=== PATIENT | female | born 1995 | race Caucasian/White ===

== ENCOUNTER → 2017-02-13 | Outpatient (CLI) | payer BC ==
[~2017-02-13] MED LIST: ALBUAER19 INH; BCPILLS PO; CETI10TA84 PO; MONT1TAB3 PO
== END | disposition home or self-care (01) ==
LOC: C.PAPS 08:48
PROVIDERS: ATTEND Obstetrics & Gynecology
DX: Z01.419 Encounter for gynecological examination (general) (routine) without abnormal findings (principal)

== ENCOUNTER → 2017-06-23 | Outpatient (CLI) | payer OTHER ==
--- NOTE | 2017-06-23 08:17 | DIAGNOSTIC IMAGING REPORT ---
ABDOMINAL ULTRASOUND, RIGHT UPPER QUADRANT HISTORY: Generalized abdominal pain.. COMPARISON: Abdomen and pelvis CT 05/30/2015. FINDINGS: Pancreas: The pancreatic tail is obscured by overlying bowel gas. The remaining portions of the pancreas are within normal limits. Liver: The liver is echogenic consistent with fatty change. A 2.6 x 2.0 x 2.1 cm hypoechoic area within the left hepatic lobe. Gallbladder: No gallbladder wall thickening. No gallstones. CBD: 4 mm. Right kidney: No hydronephrosis. IMPRESSION: 1. The liver is slightly echogenic consistent with mild fatty change. 2. There is a 2.6 x 2.1 x 2.0 cm hypoechoic area which may represent focal fatty sparing. However, dedicated liver MRI is recommended for confirmation. Electronically signed by: Raghu Rueda M.D. 06/23/2017 8:15 AM Dictated Date/Time: 06/23/2017 8:13 AM
== END | disposition home or self-care (01) ==
LOC: C.ULTR 06:32
PROVIDERS: ATTEND Nurse Practitioner Family
DX: R10.11 Right upper quadrant pain (principal); R93.2 Abnormal findings on diagnostic imaging of liver and biliary tract

== ENCOUNTER → 2017-06-28 | Outpatient (CLI) | payer OTHER ==
[~2017-06-28] MED LIST changes: +GADOXETATE DISODIUM (NON-WT BASED PROCEDURE) IV PRN
--- NOTE | 2017-06-28 08:02 | DIAGNOSTIC IMAGING REPORT ---
LIVER COMBO CLINICAL HISTORY: 22 years-old Female presenting with ABD PAIN,RT UPPER QUAD, pain for 3 weeks, question of focal fatty sparing on recent ultrasound. TECHNIQUE: Multisequence, multiplanar MR imaging of the abdomen was performed before and after the administration of intravenous contrast. IV contrast: 10 mL of Eovist. COMPARISON: CT from 05/30/2015 and ultrasound from 06/23/2017. FINDINGS: Localizer images: Unremarkable. Lung bases: Lungs and pleural spaces clear. Normal heart size. No pericardial or pleural effusion. Liver: Normal morphology. Hepatic fat fraction measures 3.6%, which is normal. Two mildly T2 hyperintense lesions are noted, one in the right hepatic lobe and one in the left hepatic lobe. These are minimally apparent on precontrast T1-weighted imaging and are mildly diffusion hyperintense. Arterial postcontrast imaging demonstrates early nearly homogeneous hyperenhancement and lack of retention of contrast on hepatocellular phase. Patent hepatic vasculature. Biliary: No intrahepatic or extrahepatic biliary ductal dilatation. Normal gallbladder. Pancreas: Normal. Spleen: Normal. Adrenal glands: Normal. Kidneys and ureters: Normal. No hydronephrosis. Bowel: Normal appendix. No bowel obstruction. Peritoneal cavity: No free fluid or intraperitoneal gas. Lymph nodes: No enlarged lymph nodes in the abdomen. Vasculature: Aorta and IVC patent and normal in caliber. Abdominal wall: Normal. Musculoskeletal: Normal. IMPRESSION: 1. No evidence of hepatic steatosis. 2. In the absence of a history of hepatocellular risk factors or malignancy, the clinically queried abnormalities on ultrasound correspond to two hepatic hemangiomas, which are benign. Electronically signed by: Hair Valle M.D. 06/28/2017 8:01 AM Dictated Date/Time: 06/28/2017 7:50 AM
== END | disposition home or self-care (01) ==
LOC: C.MRI 06:08
PROVIDERS: ATTEND Nurse Practitioner Family
DX: R10.11 Right upper quadrant pain (principal); R93.2 Abnormal findings on diagnostic imaging of liver and biliary tract

== ENCOUNTER → 2017-07-12 | Outpatient (CLI) | payer OTHER ==
[~2017-07-12] MED LIST changes: -GADOXETATE DISODIUM (NON-WT BASED PROCEDURE) IV PRN; +OPTIRAY 320 IV PRN
--- NOTE | 2017-07-12 08:00 | DIAGNOSTIC IMAGING REPORT ---
ABD/PELVIS IV AND ORAL CONT CT DOSE: 1062.14 mGycm HISTORY: Pain. Nausea. RUQ PAIN, DIARRHEA, HEMANGIOMA OF LIVER TECHNIQUE: Multiaxial CT images of the abdomen and pelvis were performed following the use of intravenous and oral contrast. A dose lowering technique was utilized adhering to the principles of ALARA. COMPARISON STUDY: 05/30/2015 FINDINGS: Lung bases are clear. Liver enhances formerly. 2 small hepatic hemangiomas procedure described are stable. No new or interval findings. Kidneys enhance uniformly. Normal bowel pattern. No evidence for obstructive change. Normal appendix. Several small ovarian follicular cysts bilaterally. No free fluid within the pelvic cul-de-sac. Bladder somewhat contracted. Several very small mesenteric nodes. IMPRESSION: 1. Minimal/mild mesenteric adenitis. 2. Otherwise negative study. 3. 2 small benign hemangiomas unchanged. The above report was generated using voice recognition software. It may contain grammatical, syntax or spelling errors. Electronically signed by: Jorge Selby M.D. 07/12/2017 7:59 AM Dictated Date/Time: 07/12/2017 7:49 AM
== END | disposition home or self-care (01) ==
LOC: C.CTS 07:15
PROVIDERS: ATTEND Registered Nurse
DX: D18.03 Hemangioma of intra-abdominal structures (principal); R19.7 Diarrhea, unspecified; R10.11 Right upper quadrant pain

== ENCOUNTER → 2017-08-16 | Day surgery (SDC) | payer OTHER ==
[2017-08-02 16:49] VITALS: Ht 170.2 cm; Wt 107.3 kg
[~2017-08-16] VITALS: Ht 170.2 cm; Wt 107.3 kg
[~2017-08-16] MED LIST changes: -ALBUAER19 INH; +ALLERGY SHOTS SQ; -BCPILLS PO; -CETI10TA84 PO; +FENTANYL CITRATE INJ 50 MCG/1 ML 2 ML VIAL ONE; +FLUT0.15 PO; +LIDOCAINE HCL 2% 2 ML VIAL (20MG/ML) ONE; -MONT1TAB3 PO; -OPTIRAY 320 IV PRN; +PRLSR20 PO; +PROPOFOL IV EMULSION 10 MG/ML 20 ML VIAL IV ONE; +SODIUM CHLORIDE 0.9% 500ML 500 ML IV ONE; +VNTHFA/IN INH
--- NOTE | 2017-08-16 08:38 | Endo History and Physical ---
History & Physical Date of Service: Aug 16, 2017. Chief Complaint: RUQ pain, diarrhea Referring Physician: Lalo Ferrera History of Present Illness 22 yo CF who presents for EGD secondary to RUQ abdominal pain and diarrhea. Past Surgical History Hx Cardiac Surgery: No Hx Internal Defibrillator: No Hx Pacemaker: No Hx Abdominal Surgery: No Hx of Implantable Prosthesis: No Hx Post-Op Nausea and Vomiting: No Hx Cancer Surgery: No Hx Thoracic Surgery: No Hx Orthopedic: No Hx Urinary Tract Surgery: No Family History Polyp Social History Smoking Status: Former Smoker Hx Substance Use: No Hx Alcohol Use: No Allergies Coded Allergies: No Known Allergies (Unverified , 08/02/17) Current Medications Reported Home Medications Medications Dose Route/Sig Max Daily Dose Days Date Category [Allergy Shots] 1 Dose SQ UD 08/02/17 Reported Prilosec (Omeprazole) 20 Mg Capcr 20 Mg PO QAM 08/02/17 Reported Flonase Allergy Relief (Fluticasone Propionate (Nasal)) 50 Mcg/Act Spr 1 [place] PO BID 08/02/17 Reported Ventolin Hfa (Albuterol) 200 Puffs/13632 Mcg Aers 2 Puffs INH Q6H PRN 08/02/17 Reported Vital Signs Weight (Kilograms): 107.27 Height (Feet): 5 Height (Inches): 7 Physical Exam General Appearance: WD/WN, no apparent distress Respiratory/Chest: Auscultation: breath sounds normal Cardiovascular: Heart Auscultation: RRR Abdomen: Bowel Sounds: normal Inspection & Palpation: soft, non-distended, no tenderness, guarding & rebound Assessment and Plan Assessment: 22 yo CF who presents for EGD secondary to RUQ abdominal pain and diarrhea. Plan: Proceed with EGD.
--- NOTE | 2017-08-16 10:03 | Discharge Instructions ---
Endoscopy Patient Instructions Date / Procedure(s) Performed Aug 16, 2017. EGD Allergy Information Coded Allergies: No Known Allergies (Unverified , 08/02/17) Discharge Date / Findings Aug 16, 2017. Duodenal biopsies Gastric antrum biopsies Medication Instructions OK to resume all medications today as prescribed Reported Home Medications Medications Dose Route/Sig Max Daily Dose Days Date Category [Allergy Shots] 1 Dose SQ UD 08/02/17 Reported Prilosec (Omeprazole) 20 Mg Capcr 20 Mg PO QAM 08/02/17 Reported Flonase Allergy Relief (Fluticasone Propionate (Nasal)) 50 Mcg/Act Spr 1 [place] PO BID 08/02/17 Reported Ventolin Hfa (Albuterol) 200 Puffs/44319 Mcg Aers 2 Puffs INH Q6H PRN 08/02/17 Reported Provider Instructions Activity Restrictions - No exercising or heavy lifting for 24 hours. - Do not drink alcohol the day of the procedure. - Do not drive a car or operate machinery until the day after the procedure. - Do not make any important decisions or sign important papers in 24 hours after the procedure. Following Day: - Return to full activity which may include returning to work/school. Diet Start your diet with liquids and light foods (jello, soup, juice, toast). Then eat your usual diet if not nauseated. Treatment For Common After Affects For mild abdominal pain, bloating, or excessive gas: - Rest - Eat lightly - Lie on right side Follow-Up Information Follow-up with Lalo Ferrera as scheduled Anesthesia Information What You Should Know You have had a procedure that required some medicine to reduce anxiety and discomfort. This treatment is called moderate sedation. After receiving the treatment, you may be sleepy, but you will be able to breathe on your own. The effects of the treatment may last for several hours. Follow these instructions along with Activity/Diet recommendations noted above: * Do NOT do anything where dizziness or clumsiness would be dangerous. * Rest quietly at home today, then you can be up and about tomorrow. * Have a responsible person stay with you the rest of today. * You may have had an I.V. today. If so, you may take the dressing off later today. Recommendations Call your doctor if: * Trouble breathing * Continuous vomiting for more than 24 hours * Temperature above 101 degrees * Severe abdominal pain or bloating * Pain not relieved by pain medicine ordered * There is increased drainage or redness from any incision * A large amount of rectal bleeding greater than 2-3 tablespoons. (If you had a polyp/s removed or have hemorrhoids, a small amount of blood - from the rectum is to be expected.) * You have any unanswered questions or concerns. IN THE EVENT OF A SERIOUS EMERGENCY, GO TO THE NEAREST EMERGENCY ROOM Your discharge instructions were prepared by provider Randolph Torres. Patient Instructions Signature Page Lu Mccabe Patient (or Guardian) Signature/Date: I have read and understand the instructions given to me by my caregivers. Caregiver/RN/Doctor Signature/Date: The above-named patient and/or guardian has received patient instructions on this date. + Original Patient Signature Page (only) stays with chart. Please make copy for patient.
--- NOTE | 2017-08-16 10:09 | GI REPORT ---
Procedure Date: 08/16/2017 8:53 AM THIS REPORT HAS BEEN AMENDED Addendum Number: 1 Addendum Date: 08/16/2017 10:11:24 AM Indication for this procedure should read RUQ abdominal pain and diarrhea Procedure: Upper GI endoscopy Indications: Abdominal pain in the left upper quadrant, Nausea Medicines: Monitored Anesthesia Care Complications: No immediate complications. Estimated Blood Loss: Estimated blood loss: none. Procedure: Pre-Anesthesia Assessment: - Prior to the procedure, a History and Physical was performed, and patient medications and allergies were reviewed. The patient's tolerance of previous anesthesia was also reviewed. The risks and benefits of the procedure and the sedation options and risks were discussed with the patient. All questions were answered, and informed consent was obtained. Prior Anticoagulants: The patient has taken no previous anticoagulant or antiplatelet agents. ASA Grade Assessment: II - A patient with mild systemic disease. After reviewing the risks and benefits, the patient was deemed in satisfactory condition to undergo the procedure. After obtaining informed consent, the endoscope was passed under direct vision. Throughout the procedure, the patient's blood pressure, pulse, and oxygen saturations were monitored continuously. The scope was introduced through the mouth, and advanced to the second part of duodenum. The upper GI endoscopy was accomplished without difficulty. The patient tolerated the procedure well. Findings: The examined esophagus was normal. The entire examined stomach was normal. Biopsies were taken with a cold forceps for histology. The examined duodenum was normal. Biopsies for histology were taken with a cold forceps for evaluation of celiac disease. Impression: - Normal esophagus. - Normal stomach. Biopsied. - Normal examined duodenum. Biopsied. Recommendation: - Resume previous diet. - Continue present medications. - Await pathology results. - Return to primary care physician as previously scheduled. Randolph Yady Torres DO 08/16/2017 10:08:27 AM This report has been signed electronically. Note Initiated On: 08/16/2017 8:53 AM I attest to the content of the Intraoperative Record and orders documented therein, exceptions below Randolph Conteh DO Brian 08/16/2017 10:11:48 AM This report has been signed electronically.
[2017-08-16 10:38] VITALS: BP 116/67; PULSE 63; O2SAT 97
--- NOTE | 2017-08-16 10:42 | Anesthesiology Progress Note ---
Anesthesia Post Op Note Date & Time Aug 16, 2017 at 10:41 Vital Signs Pain Intensity: 5 Vital Signs Past 12 Hours Date Time Temp Pulse Resp B/P (MAP) Pulse Ox O2 Delivery O2 Flow Rate FiO2 08/16/17 10:19 72 16 121/81 (94) 99 Room Air 08/16/17 10:04 89 16 116/74 (88) 97 Room Air 08/16/17 08:38 36.7 84 20 144/85 (104) 99 Room Air Notes Mental Status: alert / awake / arousable, participated in evaluation Pt Amnestic to Procedure: Yes Nausea / Vomiting: adequately controlled Pain: adequately controlled Airway Patency, RR, SpO2: stable & adequate BP & HR: stable & adequate Hydration State: stable & adequate Anesthetic Complications: no major complications apparent
== END | disposition home or self-care (01) ==
LOC: C.GI 08:15
PROVIDERS: ATTEND Internal Medicine
DX: R10.11 Right upper quadrant pain (principal); R19.7 Diarrhea, unspecified; J45.909 Unspecified asthma, uncomplicated; E66.9 Obesity, unspecified; Z87.891 Personal history of nicotine dependence; Z68.37 Body mass index [BMI] 37.0-37.9, adult; Z90.89 Acquired absence of other organs; Z83.71 Family history of colonic polyps

== ENCOUNTER → 2017-09-19 | Outpatient (CLI) | payer OTHER ==
[~2017-09-19] MED LIST changes: -FENTANYL CITRATE INJ 50 MCG/1 ML 2 ML VIAL ONE; -LIDOCAINE HCL 2% 2 ML VIAL (20MG/ML) ONE; -PROPOFOL IV EMULSION 10 MG/ML 20 ML VIAL IV ONE; +SINCALIDE INJ 2.2 MCG in SODIUM CHLORIDE 0.9% 100ML 100 ML IV ONE; -SODIUM CHLORIDE 0.9% 500ML 500 ML IV ONE
--- NOTE | 2017-09-19 10:23 | DIAGNOSTIC IMAGING REPORT ---
NUCLEAR MEDICINE HEPATOBILIARY SCAN WITH EJECTION FRACTION HISTORY: R10.11 Abdominal pain, RUQ (right upper quadrant)R19.7 Acute magda COMPARISON: Abdominal ultrasound 06/23/2017. TECHNIQUE: Immediately following the intravenous administration of 5.5 mCi Tc-99m Choletec, dynamic anterior abdominal imaging pre/post 2 mcg of Kinevac was performed. FINDINGS: Uniform hepatic tracer accumulation is shown. Prompt intrahepatic biliary excretion is seen. The gallbladder, common bile duct, and small bowel are all visualized by 57 minutes. This appearance represents the normal sequence of biliary excretion. The gall bladder ejection fraction following administration of Kinevac was 95% (normal >35%). IMPRESSION: 1. No evidence for cystic duct obstruction. 2. Gallbladder ejection fraction calculated to be 95 %. Electronically signed by: Raghu Rueda M.D. 09/19/2017 10:22 AM Dictated Date/Time: 09/19/2017 10:20 AM
== END | disposition home or self-care (01) ==
LOC: C.NUCL 07:51
PROVIDERS: ATTEND Registered Nurse
DX: R11.0 Nausea (principal); R19.7 Diarrhea, unspecified; R10.11 Right upper quadrant pain

== ENCOUNTER 2020-10-31 06:26 | Inpatient (IN) ==
--- NOTE | 2020-10-31 06:45 | Labor Progress Brief Note ---
Date of Service October 31, 2020 Subjective Patient returns to L&D reporting contractions that are Q2min at times. Still no LOF, no VB. Good FM. Has now lost some more mucus plug. Assessment & Plan (1) Normal labor and delivery: now making cervical change, admit, epidural requested. Physical Exam Physical Exam: /-2 T Cat 1 [place] Q2-4 irreg mucus on labia, no ROM evident Results & Data ([facility]) Vital Signs (Past 12 Hours) Vital Signs Pulse BP 10/31/20 06:34 86 144/83 H Coding Level of Care Code None Diagnoses Normal labor and delivery O80
[2020-10-31] MEDS ORDERED: ePHEDrine sulfate 50 MG/ML AMP ONE (07:45)
[2020-10-31] MEDS ORDERED: SODIUM CHLORIDE 0.9% INJ 10 ML VIAL ONE (07:45)
[2020-10-31] MEDS ORDERED: BUPIVACAINE 0.25% 30 ML VIAL ONE (07:45)
[2020-10-31] MEDS: LACTATED RINGER'S 1,000 ML IV PRN ×3 (07:45→11:44)
[2020-10-31] MEDS ORDERED: fentaNYL citrate 100 MCG/2 ML VIAL ONE (07:46)
[2020-10-31] MEDS ORDERED: fentaNYL 2MCG/ML ROPIVACAINE 1.25MG/ML 100 ML BAG EPI ONE (07:46)
[2020-10-31 07:50] LABS: Hematocrit (blood only) 42.1 % (37-47); Hemoglobin 14.6 g/dL (12.0-16.0); Mean Corpuscular Hemoglobin 31.6 pg (25-34); Mean Corpuscular Hgb Conc 34.7 g/dL (32-36); Mean Corpuscular Volume 91.1 fL (80-100); Mean Platelet Volume 10.1 fL (7.4-10.4); Platelet Count 278 K/uL (130-400); RDW Coefficient of Variation 13.6 % (11.5-14.5); RDW Standard Deviation 44.4 fL (36.4-46.3); Red Blood Count 4.62 M/uL (4.2-5.4)
--- NOTE | 2020-10-31 08:18 | Anesthesiology Consultation ---
Date of Service October 31, 2020 Assessment & Plan (1) Encounter for pre-operative examination: Chart Review Chart Review: Patient NOT seen in Pre Admission Testing and Acceptable Risk for Labor Epidural Consults Requested none ASA ASA2 Proposed Anesthesia Anesthesia Type: Labor Epidural Risk / Benefits Reviewed With: PT / POA / Parent / Guardian, Accepts Plan and Informed Consent Obtained History Height/Weight Height: 5 ft 7 in Weight: 133.356 kg Allergies Allergy/AdvReac Type Severity Reaction Status Date / Time No Known Drug Allergies Allergy Verified 10/27/20 16:24 Medications Home Medications Medication Instructions Recorded Confirmed Last Taken albuterol sulfate 90 mcg/actuation 2 puffs INHALATION Q6H PRN #18 gm 02/28/19 10/31/20 Unknown aerosol inhaler levothyroxine 50 mcg tablet 50 mcg PO DAILY #90 tab 07/09/20 10/31/20 10/30/20 08:00 prenat.vits,latasha,stu-boqn-xazug 1 tab PO DAILY 09/09/20 10/31/20 10/30/20 08:00 [ Vitamin] Past Medical History Medical History Anxiety Asthma Dysmenorrhea Dyspareunia Eczema History of hemangioma HX OF 2. WAS SEEN BY LIVER SPECIAL[place] [facility] [place]THER CONCERN Perianal abscess Past Family History Family History Father Allergic rhinitis Family history of bleeding or clotting disorder Hypertension Dyslipidemia Grandmother Asthma Osteoporosis Ovarian cancer great grandmother Grandfather Diabetes Cancer Heart disease Grandmother (Maternal) Asthma Mother Family history of bleeding or clotting disorder Thyroid disease Denies family history of Prostate cancer Crohn's disease Myocardial infarction Breast cancer Colorectal cancer Past Surgical History Surgical History History of cholecystectomy History of esophagogastroduodenoscopy (EGD) 08/16/17. propofol/fentanyl. no issues. History of hysterosalpingogram 10/16/18, Dr. Sumner History of laparoscopic cholecystectomy (~03/2018) History of tonsillectomy History of tooth extraction Social History Smoking Status: Never smoker Hx Alcohol Use: No Hx Substance Use: No substance use type: does not use Physical Exam Vital Signs Last Vital Signs Temp 36.7 C 10/31/20 06:59 Pulse 73 10/31/20 08:10 Resp 18 10/31/20 06:59 BP 138/82 10/31/20 06:59 Pulse Ox 97 10/31/20 08:10 Testing Laboratory Results 10/31/20 07:41
[2020-10-31] MEDS ORDERED: ONDANSETRON INJ 2 MG/ML 2 ML VIAL IV PRN (09:21)
[2020-10-31] MEDS ORDERED: diphenhydrAMINE 50 MG/ML VIAL IV PRN (09:21)
[2020-10-31] MEDS ORDERED: NALOXONE HCL 1 MG in SODIUM CHLORIDE 0.9% 1000ML 1,000 ML IV PRN (09:21)
[2020-10-31] MEDS ORDERED: ePHEDrine sulfate 50 MG/ML AMP IV PRN (09:21)
[2020-10-31] MEDS ORDERED: NALOXONE HCL 0.4 MG/1 ML VIAL/CARP IV PRN (09:21)
[2020-10-31] MEDS ORDERED: fentaNYL 2MCG/ML ROPIVACAINE 1.25MG/ML 100 ML BAG EPI PRN (09:21)
[2020-10-31] MEDS ORDERED: CALCIUM CARBONATE 500 MG CHEWABLE TAB PO PRN (10:50)
[2020-10-31] MEDS ORDERED: LIDOCAINE 1% LOCAL 20 ML VIAL ONE (14:01)
[2020-10-31] MEDS: OXYTOCIN 30 UNITS/500 ML BAG IV PRN ×2 (14:14→14:53)
[2020-10-31] MEDS ORDERED: IBUPROFEN 600 MG TAB PO ONE (14:57)
[2020-10-31] MEDS ORDERED: OXYTOCIN 30 UNITS/500 ML BAG IV PRN (15:09)
[2020-10-31] MEDS ORDERED: SUPERCREAM 0.870% 15 GM JAR EXT PRN (15:09)
[2020-10-31] MEDS ORDERED: BENZOCAINE 20% AER SPR 82.5 GM CAN EXT PRN (15:09)
[2020-10-31] MEDS ORDERED: DIPHTHERIA/TETANUS/PERTUSSIS 0.5 ML SYR/VIAL IM ONE (15:09)
[2020-10-31] MEDS ORDERED: ACETAMINOPHEN 325 MG TAB PO PRN (15:09)
[2020-10-31] MEDS ORDERED: HYDROCORTISONE ACETATE 25 MG SUPP PR PRN (15:09)
--- NOTE | 2020-10-31 15:47 | Anesthesia Procedure Note ---
Date of Service October 31, 2020 Anesthesia Post Epidural Note Vital Signs Vital Signs: Temp Pulse Resp BP Pulse Ox 36.8 C 97 H 18 139/76 99 10/31/20 13:36 10/31/20 15:35 10/31/20 15:20 10/31/20 15:35 10/31/20 14:11 Pain Intensity Bilateral Abdomen: Pain Intensity: 0 Notes Mental Status: alert / awake / arousable and participated in evaluation Nausea / Vomiting: adequately controlled Pain: adequately controlled Airway Patency, RR, SpO2: stable & adequate BP & HR: stable & adequate Hydration State: stable & adequate Neuraxial Anesthesia: was administered and sensory block is resolving Anesthetic Complications: no major complications apparent and Pt Satisfied with anesthetic care Epidural: Removed without complications and With tip intact
--- NOTE | 2020-10-31 18:42 | Delivery Summary ---
DATE OF SERVICE: 10/31/2020 PROCEDURE: Normal spontaneous vaginal delivery, second-degree perineal laceration repair. SURGEON: Krish Sumner MD. PREOPERATIVE DIAGNOSES: 1. Single intrauterine at term. 2. Spontaneous labor. 3. Hypothyroidism. POSTOPERATIVE DIAGNOSES: 1. Single intrauterine at term. 2. Spontaneous labor. 3. Hypothyroidism. 4. Status post procedure. ESTIMATED BLOOD LOSS: 300 mL. DRAINS: Straight cath. FLUIDS: Continuous lactated Ringer. URINE OUTPUT: Per straight cath. COMPLICATIONS: None. FINDINGS: Viable male infant, weight pending and Apgars of 8 and 9 at one and five minutes charles choy. DESCRIPTION OF PROCEDURE: The patient progressed to 10 cm dilated, 100% effaced, positive 2 station , pushed over perineum over approximately 3-4 contractions to achieve delivery. The head of the neon ate delivered in KEVON position, restituted into right transverse. No nuchal cord was noted, body and shoulders quickly followed. was noted to be vigorous upon delivery and a [address] clamping was initiated. Cord was then double clamped and cut. remained on the maternal a bdomen. Cord blood was obtained. Attention was then turned to delivery of placenta, which was deliv ered intact, 3-vessel cord, gentle cord traction. On inspection of the perineum, vagina, cervix, the re was noted to be a second-degree perineal laceration, which was repaired with a 3-0 Vicryl in the t raditional crown stitch. Needle, sponge, and instrument counts were correct at the completion of the case. Both mother and were stable in the immediate post-delivery period. Job ID: [id number]
[2020-10-31] MEDS ORDERED: DOCUSATE SODIUM 100 MG CAP PO ONE (19:09)
[2020-10-31] MEDS: IBUPROFEN 600 MG TAB PO PRN ×2 (19:19→23:24)
[2020-10-31] MEDS: DOCUSATE SODIUM 100 MG CAP PO SCH (19:20)
[2020-11-01] MEDS: IBUPROFEN 600 MG TAB PO PRN ×3 (03:40→12:39)
[2020-11-01] MEDS ORDERED: LEVOTHYROXINE SODIUM 50 MCG TABLET PO SCH (06:30)
[2020-11-01] MEDS ORDERED: PRENATAL VITAMIN 1 TAB PO SCH (08:00)
[2020-11-01] MEDS: DOCUSATE SODIUM 100 MG CAP PO SCH (08:20)
--- NOTE | 2020-11-01 09:02 | Obstetrical Progress Note ---
Date of Service November 01, 2020 Assessment & Plan (1) Encounter for care and examination after delivery: day 1 following . Doing well. Stable for discharge Subjective Ambulation: ambulating normally Voiding: no voiding problems Diet Tolerance:: regular diet Lochia:: Moderate Feeding Type:: breast feeding Physical Exam Constitutional WD/WN, vitals as above Respiratory normal respiratory effort; no respiratory distress and no labored breathing Gastrointestinal (Abdomen) Inspection/Auscultation: abdomen normal to inspection; abdomen not distended Percussion/Palpation: abdomen soft; abdomen nontender, no guarding and abdomen not rigid Genitourinary OB Exam Abdomen: + fundal height Fundus: + firm and + relation to umbilicus (Below); not tender and not boggy Results & Data ([facility]) Vital Signs (Past 12 Hours) Vital Signs Temp Pulse Resp BP Pulse Ox 11/01/20 03:30 36.5 C 88 16 116/75 97 10/31/20 23:15 36.3 C L 88 16 101/69 98
[2020-11-01] MEDS ORDERED: bisacodyL 5 MG TABEC PO SCH (20:00)
[2020-11-02] MEDS ORDERED: bisacodyL 10 MG SUPP PR PRN (06:00)
== END 2020-11-01 16:10 | disposition home or self-care (01) | DRG 807 ==
LOC: OPB 06:26 → 4S1 06:29 → 4N 17:30

== ENCOUNTER 2023-09-01 18:43 | Inpatient (IN) ==
[2023-09-01] MEDS ORDERED: LIDOCAINE 1% LOCAL 20 ML VIAL INFIL PRN (19:46)
[2023-09-01] MEDS ORDERED: OXYTOCIN 30 UNITS/NSS 30 UNITS/500 ML BAG IV PRN (19:46)
[2023-09-01] MEDS ORDERED: ALBUTEROL HFA 8 GM INHALER INH PRN (19:48)
[2023-09-01 20:27] LABS: Hematocrit (blood only) 40.1 % (37.0-47.0); Hemoglobin 13.4 g/dl (12.0-16.0); Mean Corpuscular Hemoglobin 31.3 pg (25.0-34.0); Mean Corpuscular Hgb Conc 33.4 g/dL (32.0-36.0); Mean Corpuscular Volume 93.7 fL (80.0-100.0); Mean Platelet Volume 9.8 fL (9.4-12.4); Platelet Count 276 K/uL (130-400); RDW Coefficient of Variation 13.5 % (11.5-14.5); RDW Standard Deviation 46.3 fL (36.4-46.3); Red Blood Count 4.28 M/uL (4.20-5.40); White Blood Count 13.32 K/ul (4.8-10.8)
[2023-09-01] MEDS: OXYTOCIN 30 UNITS/NSS 30 UNITS/500 ML BAG IV PRN (21:10)
[2023-09-01] MEDS: LACTATED RINGER'S 1,000 ML IV PRN (21:10)
--- NOTE | 2023-09-01 21:36 | History & Physical Report ---
Date of Service September 01, 2023 Assessment & Plan (1) Encounter for induction of labor: Plan: Multiparous female at 39-1/7 weeks who presents for elective induction of labor. Cervical balloon was successfully placed and Pitocin by induction protocol was begun. Epidural when requested. Anticipate vaginal . Admission and Anticipated Discharge Date Admission Date: September 01, 2023 History of Present Illness Primary Care Provider: Lalo Ferrera III, CRNP Patient is a 28-year-old 2 para 1-0-0-1 female EDC 09/07/2023 presents for elective induction. otherwise has been uncomplicated. Group B strep is negative. Allergies Allergy/AdvReac Type Severity Reaction Status Date / Time No Known Allergies Allergy Verified 08/31/23 08:51 Home Medications Medication Instructions Recorded Confirmed Type 21-iron fu-folic acid 1 tab PO DAILY 01/25/23 09/01/23 History [ Complete] fluticasone propionate 50 See Rx Instructions intranasal BID 04/10/23 08/31/23 Rx mcg/actuation nasal PRN Allergy Symptoms #16 grams spray,suspension (Flonase Allergy Relief) albuterol sulfate 90 mcg/actuation 2 puff inhalation Q6H PRN Wheezing 06/07/23 09/01/23 Rx aerosol inhaler #18 grams levothyroxine 75 mcg tablet 75 mcg PO DAILY #90 tabs 06/08/23 09/01/23 Rx (Synthroid) Patient History Medical History History of chicken pox Anxiety Dysmenorrhea Dyspareunia Eczema Perianal abscess History of hemangioma Asthma Surgical History History of cholecystectomy History of hysterosalpingogram History of laparoscopic cholecystectomy (~03/2018) History of esophagogastroduodenoscopy (EGD) History of tonsillectomy History of tooth extraction Family History Father Allergic rhinitis Family history of bleeding or clotting disorder Hypertension Dyslipidemia Grandmother Asthma Osteoporosis Ovarian cancer Grandfather Diabetes Cancer Heart disease Grandmother (Maternal) Asthma Mother Family history of bleeding or clotting disorder Thyroid disease Denies family history of Prostate cancer Crohn's disease Myocardial infarction Breast cancer Colorectal cancer Social History Smoking Status: Never smoker Second Hand Exposure: No; Do You Dip or Chew Tobacco: No; Hx Alcohol Use: No Hx Substance Use: No Preferred Language: Niuean Communication Ability: Effective Visual Impairment: Limited Hearing Ability: Normal Transport Technician Required: No Beliefs That Will Affect Care: None marital status: marital status details: Jorge (34) [phone] Current Living Situation: Spouse and Family Current Living Situation Comment: 2 year old son current occupational status: employed 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 How many Children do You have: 1 Feels Safe at Home: Yes Safety Concerns: Feels Safe At This Time Childhood Exposure to Second-Hand Smoke: Yes Diet: regular caffeine: Yes during the past year weight has: remained stable Dental Care, Regularly: Yes Physical Activity Frequency: 3-4 Times per Week Seatbelt Use: always Sunscreen Use: Yes Assistive Devices: Glasses Review of Systems All systems reviewed & are unremarkable except as noted in HPI & below Physical Exam Constitutional: WD/WN, vitals as above Psychiatric: A+Ox3, euthymic affect Genitourinary: OB Exam Abdomen: + fundal height (term), + vertex and + estimated weight (7-8 pounds) Manual OB Exam: + cervical dilation (1- 2), + cervical effacement 60% and + station -2 OB Exam Monitor Tracing: + external FHT monitor used, + external uterine monitor used, + category I and + normal FHT variability after patient gave consent, a speculum was placed vaginally and the cervix visualized. a Alberto catheter was threaded into the internal os . 40 cc sterile water was instilled into the balloon. The catheter was then secured to her left thigh under traction. she tolerated the procedure well. Results & Data Vital Signs (Past 12 Hours) Vital Signs Temp Pulse Resp BP 09/01/23 19:10 98.6 F 92 H 18 137/89 09/01/23 19:05 92 H 137/89 Code Status & VTE Plan VTE Prophylaxis Plan VTE Prophylaxis will be ordered: No Coding Level of Care Code None Diagnoses Encounter for induction of labor Z34.90 CPT Codes Misx Procedure Codes - 74687 Placement of cervical dilator: 71019 Placement of cervical dilator ([id number])
[2023-09-01] MEDS: fentANYL 2 MCG/ML BUPIVacaine 0.125%-NSS 100ML BAG ONE (22:26)
[2023-09-01] MEDS: fentaNYL citrate PF 100 MCG/2 ML VIAL ONE (22:28)
[2023-09-01] MEDS: BUPIVACAINE 0.25% PF 30 ML VIAL ONE (22:28)
[2023-09-01] MEDS: LIDOCAINE 2%/EPINEPHRINE 1:200,000 20 ML PF ONE (22:28)
[2023-09-01] MEDS: SODIUM CHLORIDE 0.9% PF INJ 10 ML VIAL ONE (22:28)
[2023-09-01] MEDS: ePHEDrine sulfate 50 MG/ML AMP ONE (22:28)
--- NOTE | 2023-09-01 22:41 | Anesthesiology Consultation ---
Date of Service September 01, 2023 Assessment & Plan Chart Review Chart Review: Acceptable Risk for Labor Epidural Consults Requested none History Height/Weight Height: 5 ft 7 in Weight: 133.81 kg Allergies Allergy/AdvReac Type Severity Reaction Status Date / Time No Known Allergies Allergy Verified 08/31/23 08:51 Medications Home Medications Medication Instructions Recorded Confirmed Last Taken 21-iron fu-folic acid 1 tab PO DAILY 01/25/23 09/01/23 09/01/23 [ Complete] fluticasone propionate 50 See Rx Instructions intranasal BID 04/10/23 08/31/23 Unknown mcg/actuation nasal PRN Allergy Symptoms #16 grams spray,suspension (Flonase Allergy Relief) albuterol sulfate 90 mcg/actuation 2 puff inhalation Q6H PRN Wheezing 06/07/23 09/01/23 Unknown aerosol inhaler #18 grams levothyroxine 75 mcg tablet 75 mcg PO DAILY #90 tabs 06/08/23 09/01/23 09/01/23 (Synthroid) Active Medications Generic Name Dose Route Start Last Admin Trade Name Freq PRN Reason Stop Dose Admin Lactated Ringer's 1,000 mls @ 125 mls/hr 09/01/23 19:46 09/01/23 21:40 Lr IV 09/03/23 19:45 125 mls/hr .Q8H PRN Infusion L&D Protocol Protocol Oxytocin 30 units in 500 mls @ 2 mls/hr 09/01/23 19:48 09/01/23 21:10 Pitocin 30 Units/Nss IV 09/03/23 19:47 0.12 units/hr .Q24H PRN 2 mls/hr Labor Induction/Augmentation Administration Protocol 0.12 UNITS/HR Past Medical History Medical History History of chicken pox Anxiety Dysmenorrhea Dyspareunia Eczema Perianal abscess History of hemangioma Asthma Past Family History Family History Father Allergic rhinitis Family history of bleeding or clotting disorder Hypertension Dyslipidemia Grandmother Asthma Osteoporosis Ovarian cancer Grandfather Diabetes Cancer Heart disease Grandmother (Maternal) Asthma Mother Family history of bleeding or clotting disorder Thyroid disease Denies family history of Prostate cancer Crohn's disease Myocardial infarction Breast cancer Colorectal cancer Past Surgical History Surgical History History of cholecystectomy History of hysterosalpingogram History of laparoscopic cholecystectomy (~03/2018) History of esophagogastroduodenoscopy (EGD) History of tonsillectomy History of tooth extraction Social History Smoking Status: Never smoker Do You Dip or Chew Tobacco: No Hx Alcohol Use: No Hx Substance Use: No substance use type: does not use Physical Exam Vital Signs Last Vital Signs Temp 37.0 C 09/01/23 19:10 Pulse 116 H 09/01/23 22:37 Resp 18 09/01/23 19:10 BP 135/72 09/01/23 22:37 Pulse Ox 98 09/01/23 22:35 Testing Laboratory Results 09/01/23 20:02 Blood Type A Positive 09/01/23 20:02 Antibody Screen NEGATIVE 09/01/23 20:02
[2023-09-01] MEDS ORDERED: BUPIVACAINE 0.25% PF 30 ML VIAL EPI PRN (22:43)
[2023-09-01] MEDS ORDERED: SODIUM CHLORIDE 0.9% PF INJ 10 ML VIAL EPI PRN (22:43)
[2023-09-01] MEDS ORDERED: NALOXONE HCL 1 MG in SODIUM CHLORIDE 0.9% 1,000 ML IV PRN (22:43)
[2023-09-01] MEDS ORDERED: fentaNYL citrate PF 100 MCG/2 ML VIAL EPI PRN (22:43)
[2023-09-01] MEDS ORDERED: ROPIVACAINE 0.5% PF 5 MG/ML 20 ML VIAL EPI PRN (22:43)
[2023-09-01] MEDS ORDERED: NALBUPHINE HCL 5 MG in SYRINGE 0 ML IV PRN (22:43)
[2023-09-01] MEDS ORDERED: NALOXONE HCL 0.4 MG/1 ML VIAL/CARP IV PRN (22:43)
[2023-09-01] MEDS ORDERED: diphenhydrAMINE 50 MG/ML VIAL IV PRN (22:43)
[2023-09-01] MEDS ORDERED: fentANYL 2 MCG/ML BUPIVacaine 0.125%-NSS 100ML BAG EPI PRN (22:43)
[2023-09-01] MEDS ORDERED: LIDOCAINE 2% MPF LOCAL 5 ML VIAL EPI PRN (22:43)
[2023-09-01] MEDS ORDERED: ePHEDrine sulfate 50 MG/ML AMP IV PRN (22:43)
[2023-09-02] MEDS ORDERED: fentaNYL citrate PF 100 MCG/2 ML VIAL ONE (03:45)
--- NOTE | 2023-09-02 04:05 | Anesthesia Procedure Note ---
Date of Service September 02, 2023 Anesthesia Epidural Re-Dose Vital Signs Temp Pulse Resp BP Pulse Ox 36.6 C 114 H 18 173/84 H 99 09/02/23 02:00 09/02/23 04:00 09/02/23 03:30 09/02/23 03:52 09/02/23 04:00 Notes Pain Intensity: 0 Dilatation (cm): 10.0 Effacement (%): 100 Called by nursing to evaluate epidural as the patient is having increased pain. The epidural was re-dosed with the following medications (all medications via epidural route) after negative aspiration of the epidural catheter for CSF/HEME. 2% lidocaine 5ml with fentanyl 100mcg. After Epidural Re-Dose Mental Status: alert / awake / arousable Pain: improving with treatment Airway Patency, RR, SpO2: stable & adequate BP & HR: stable & adequate
--- NOTE | 2023-09-02 04:20 | Anesthesia Procedure Note ---
Date of Service September 02, 2023 Anesthesia Post Epidural Note Vital Signs Vital Signs: Temp Pulse Resp BP Pulse Ox 36.6 C 126 H 18 173/71 H 98 09/02/23 02:00 09/02/23 04:17 09/02/23 03:30 09/02/23 04:17 09/02/23 04:15 Notes Mental Status: alert / awake / arousable Nausea / Vomiting: adequately controlled Pain: adequately controlled Airway Patency, RR, SpO2: stable & adequate BP & HR: stable & adequate Hydration State: stable & adequate Neuraxial Anesthesia: was administered and sensory block is resolving Anesthetic Complications: no major complications apparent and Pt Satisfied with anesthetic care Epidural: Removed without complications and With tip intact
[2023-09-02] MEDS ORDERED: ACETAMINOPHEN 325 MG TAB PO PRN (04:21)
[2023-09-02] MEDS ORDERED: bisacodyL 10 MG SUPP PR PRN (04:21)
[2023-09-02] MEDS ORDERED: HYDROCORTISONE ACETATE 25 MG SUPP PR PRN (04:21)
[2023-09-02] MEDS ORDERED: oxyCODONE/ACETAMINOPHEN 5mg/325mg TAB PO PRN (04:21)
[2023-09-02] MEDS ORDERED: OXYTOCIN 30 UNITS/NSS 30 UNITS/500 ML BAG IV PRN (04:21)
[2023-09-02] MEDS: LEVOTHYROXINE SODIUM 75 MCG TABLET PO SCH (05:56)
[2023-09-02] MEDS: DIPHTHER/TETAN/PERTUS Vaccine (Tdap, Adol/Adult) 0.5mL IM ONE (07:07)
[2023-09-02] MEDS: LIDOCAINE 2%/EPINEPHRINE 1:200,000 20 ML PF EPI STA (07:09)
[2023-09-02] MEDS: BUPIVACAINE 0.25% PF 30 ML VIAL EPI STA (07:09)
[2023-09-02] MEDS: fentaNYL citrate PF 100 MCG/2 ML VIAL EPI STA (07:09)
[2023-09-02] MEDS: SODIUM CHLORIDE 0.9% PF INJ 10 ML VIAL EPI STA (07:10)
[2023-09-02] MEDS: DOCUSATE SODIUM 100 MG CAP PO SCH (07:53)
[2023-09-02] MEDS: PRENATAL VITAMIN 1 TAB PO SCH (07:53)
[2023-09-02] MEDS: BENZOCAINE 20% SPRY 85 APPLN/85 GM CAN EXT PRN (08:29)
[2023-09-02] MEDS: IBUPROFEN 600 MG TAB PO PRN (08:29)
[2023-09-03 06:47] LABS: Hemoglobin 11.7 g/dl (12.0-16.0); Mean Corpuscular Hemoglobin 31.7 pg (25.0-34.0); Mean Corpuscular Hgb Conc 33.4 g/dL (32.0-36.0); Mean Corpuscular Volume 94.9 fL (80.0-100.0); Platelet Count 219 K/uL (130-400); RDW Coefficient of Variation 13.6 % (11.5-14.5); RDW Standard Deviation 46.6 fL (36.4-46.3); Red Blood Count 3.69 M/uL (4.20-5.40); White Blood Count 12.12 K/ul (4.8-10.8)
--- NOTE | 2023-09-03 08:41 | Obstetrical Progress Note ---
Date of Service September 03, 2023 Assessment & Plan (1) Encounter for care and examination after delivery: Day 1 status post vaginal delivery. Doing well. Stable for discharge. Subjective Ambulation: ambulating normally Voiding: no voiding problems Passing Gas:: Yes Diet Tolerance:: regular diet Lochia:: Moderate Feeding Type:: breast feeding Physical Exam Constitutional WD/WN, vitals as above Respiratory normal respiratory effort; no respiratory distress and no labored breathing Gastrointestinal (Abdomen) Inspection/Auscultation: abdomen normal to inspection; abdomen not distended Percussion/Palpation: abdomen soft; abdomen nontender, no guarding and abdomen not rigid Genitourinary OB Exam Abdomen: + fundal height Fundus: + firm and + relation to umbilicus (Below); not tender or not boggy Results & Data Vital Signs (Past 12 Hours) Vital Signs Temp Pulse Resp BP Pulse Ox O2 Del Method 09/02/23 23:16 36.5 C 76 18 121/67 98 Room Air
[2023-09-03] MEDS: MEASLES, MUMPS & RUBELLA VIRUS VACCINE (MMR) 0.5ML VIAL SQ ONE (09:09)
[2023-09-03] MEDS ORDERED: bisacodyL 5 MG TABEC PO SCH (20:00)
--- NOTE | 2023-09-05 08:27 | Delivery Summary ---
Vaginal Delivery Summary Date of Service August Vaginal Delivery Summary and 1st Degree LAC Patient is a 28-year-old 2 para 1-0-0-1 female who presents at 39+ weeks for elective induction. She had a cervical balloon inserted and Pitocin induction per protocol was begun. The balloon fell out rather quickly, she was noted to be 4 cm dilated at that time. She received effective epidural analgesia. Membranes ruptured for clear fluid. She progressed to full dilation with the urge to push. She pushed effectively through 1 contraction for delivery of a viable female infant over intact perineum. After the head was delivered the rest of the infant delivered easily and was placed on the mother's abdomen for further attention and drying. She was vigorous crying and moving all 4 limbs. After 1 minute the cord was clamped and cut. After cord blood was obtained, the placenta was expressed intact with a three-vessel cord. A first- degree perineal laceration was bleeding and therefore repaired with 3-0 chromic in usual fashion. QBL per nurse's documentation. Mother and infant were doing well after delivery. [facility] [place] Delivery Type Details: and 1st Degree LAC
== END 2023-09-03 13:10 | disposition home or self-care (01) | DRG 807 ==
LOC: 4S1 18:43 → 4E1 09-02 09:01